=== PATIENT | female | born 1930 | race Caucasian/White ===

== ENCOUNTER 2018-08-21 16:17 | Inpatient (IN) | payer MEDICARE, OTHER | END 2018-08-25 11:30 | disposition home health service (06) | LOC: ER 16:17 → SUR 3N 08-23 22:43 → ED HOLD 20:00 | DX: J44.1 Chronic obstructive pulmonary disease with (acute) exacerbation (principal); J18.1 Lobar pneumonia, unspecified organism; N17.9 Acute kidney failure, unspecified; E11.8 Type 2 diabetes mellitus with unspecified complications; R51 Headache; E03.9 Hypothyroidism, unspecified; Z79.01 Long term (current) use of anticoagulants; E11.22 Type 2 diabetes mellitus with diabetic chronic kidney disease; N18.9 Chronic kidney disease, unspecified ==